=== PATIENT | female | born 1955 | race Caucasian/White ===

== ENCOUNTER 2022-10-14 04:37 | Day surgery (SDC) | payer OTHER ==
[2022-10-08 13:17] VITALS: BMI 23.4
[2022-10-14 13:52] VITALS: TEMP 98.4
[2022-10-14 14:39] VITALS: BP 131/49; RESP 17
[2022-10-14 14:45] VITALS: PULSE 68
[2022-10-14 15:12] LABS: BLOOD UREA NITROGEN 10.8 mg/dL (7-18); CALCIUM 9.5 mg/dL (8.5-10.1)
[2022-10-14 15:16] LABS: CREATININE 0.6 mg/dL (0.55-1.3)
== END 2022-10-14 14:49 | disposition home or self-care (01) ==
LOC: JASU-ENDO 04:37
PROVIDERS: ATTEND Internal Medicine Gastroenterology
PROC: 0DJD8ZZ Inspection of Lower Intestinal Tract, Via Natural or Artificial Opening Endoscopic (ICD-10-PCS; principal; 2022-10-14 12:45)
DX: Z12.11 Encounter for screening for malignant neoplasm of colon (principal); K59.89 Other specified functional intestinal disorders; K63.89 Other specified diseases of intestine; K64.8 Other hemorrhoids; Z86.010 Personal history of colon polyps
CPT/HCPCS: 36415; 80048

== ENCOUNTER 2022-12-28 12:03 | Emergency (ER) | payer OTHER ==
[2022-12-28 12:09] VITALS: BP 159/67; PULSE 83; RESP 18; TEMP 98; BMI 23.0
[2022-12-28] MEDS ORDERED: ONDANSETRON 4 MG/2 ML VIAL IVPB ONE (12:33)
[2022-12-28] MEDS ORDERED: METOCLOPRAMIDE HCL INJECTION 10 MG/2 ML VIAL IVPB ONE (12:33)
[2022-12-28] MEDS ORDERED: ACETAMINOPHEN 500 MG TABLET (FP) PO ONE (12:33)
[2022-12-28] MEDS ORDERED: LIDOCAINE 5% TOPICAL PATCH TP ONE (12:50)
[2022-12-28] MEDS ORDERED: METOCLOPRAMIDE HCL INJECTION 10 MG/2 ML VIAL ONE (12:58)
[2022-12-28] MEDS ORDERED: ACETAMINOPHEN 325 MG TABLET (FP) ONE (12:58)
[2022-12-28] MEDS ORDERED: ONDANSETRON 4 MG/2 ML VIAL ONE (12:59)
[2022-12-28] MEDS ORDERED: LIDOCAINE 5% TOPICAL PATCH ONE (12:59)
[2022-12-28 13:45] LABS: BASO % 1.3 % (0-2.0); EOS % 0.9 % (0-4.5); HEMATOCRIT 40.7 % (32.4-45.2); HEMOGLOBIN 13.9 GM/dL (10.7-15.3); LYMPH % 40.1 % (8-40); MCH 30.9 pg (25.7-33.7); MEAN CELL VOLUME 90.7 fl (80-96); MEAN PLT VOLUME 9.7 fl (7.5-11.1); MONO % 6.3 % (3.8-10.2); NEUT % 51.4 % (42.8-82.8); PLATELET COUNT 253 10^3/uL (134-434); RBC 4.49 M/mm3 (3.60-5.2); RDW 12.9 % (11.6-15.6); WHITE BLOOD COUNT 8.5 K/mm3 (4.0-10.0)
[2022-12-28 13:47] LABS: EPI CELLS 29 /uL (0-25.1); HYALINE CASTS 0 /uL (0-3.1); URINE APPEARANCE CLEAR; URINE BACTERIA 97 /uL (0-1359); URINE BILIRUBIN NEGATIVE (NEGATIVE); URINE COLOR YELLOW; URINE GLUCOSE (UA) NEGATIVE (NEGATIVE); URINE KETONE NEGATIVE (NEGATIVE); URINE LEUK ESTERASE 1+ (NEGATIVE); URINE NITRITE NEGATIVE (NEGATIVE); URINE PROTEIN NEGATIVE (NEGATIVE); URINE RBC 17 /uL (0-23.9); URINE UROBILINOGEN 0.2 mg/dL (0.2-1.0); URINE WBC 23 /uL (0-25.8)
[2022-12-28 14:00] LABS: POTASSIUM 4.1 mmol/L (3.5-5.1)
[2022-12-28 14:02] LABS: CALCIUM 9.8 mg/dL (8.5-10.1)
[2022-12-28 14:03] LABS: ALBUMIN 3.9 g/dl (3.4-5.0); BLOOD UREA NITROGEN 10.5 mg/dL (7-18); MAGNESIUM 1.9 mg/dL (1.8-2.4)
[2022-12-28 14:05] LABS: CREATININE 0.7 mg/dL (0.55-1.3)
[2022-12-28 14:06] LABS: PHOSPHOROUS 3.2 mg/dL (2.5-4.9)
[2022-12-28 14:07] LABS: BILIRUBIN,TOTAL 0.6 mg/dL (0.2-1); TOT PROT 8.2 g/dl (6.4-8.2)
[2022-12-28] MEDS ORDERED: LIDOCAINE PATCH REMOVAL MC SCH (22:00)
== END 2022-12-28 14:30 | disposition home or self-care (01) ==
LOC: JER 12:03
PROC: 3E033NZ Introduction of Analgesics, Hypnotics, Sedatives into Peripheral Vein, Percutaneous Approach (ICD-10-PCS; principal; 2022-12-28)
PROC: 3E033GC Introduction of Other Therapeutic Substance into Peripheral Vein, Percutaneous Approach (ICD-10-PCS; 2022-12-28)
DX: R51.9 Headache, unspecified (principal); R11.0 Nausea; N39.0 Urinary tract infection, site not specified; R31.9 Hematuria, unspecified
CPT/HCPCS: 0241U-QW; 36415; 70450-TC; 71046-TC-FY; 80053; 81003; 83690; 83735; 84100; 84484; 85025; 87086; 93005; 93010; 96374; 96375; 99285-25

== ENCOUNTER 2023-09-28 14:47 | Emergency (ER) | payer OTHER ==
[2023-09-28 14:56] VITALS: BP 145/57; PULSE 95; RESP 18; TEMP 97.9; BMI 23.0
[2023-09-28 15:40] LABS: THROAT:GRP A STREP DETECTED (NOTDETECTED)
== END 2023-09-28 17:07 | disposition home or self-care (01) ==
LOC: JERFT 14:47
DX: R50.9 Fever, unspecified (principal); R53.81 Other malaise; R11.10 Vomiting, unspecified; J02.0 Streptococcal pharyngitis; Z20.822 Contact with and (suspected) exposure to COVID-19
CPT/HCPCS: 0241U-QW; 87651; 99283-25